=== PATIENT | male | born 1935 | race Caucasian/White ===

== ENCOUNTER 2023-10-06 16:40 | Inpatient (IN) | payer MEDICARE, OTHER ==
[2023-10-06] MEDS ORDERED: Artificial Tear Sol 15 ML BOT EA EYE PRN (22:24)
[2023-10-06] MEDS ORDERED: Calcium Carbonate 500 MG ChewTAB PO PRN (22:24)
[2023-10-06] MEDS ORDERED: Bisacodyl 10 MG SUPP PR PRN (22:24)
[2023-10-06] MEDS ORDERED: Sodium Chloride 0.65% Nasal 44 ML BOT EA NARE PRN (22:24)
[2023-10-06] MEDS ORDERED: Acetaminophen 325 MG TAB PO PRN (22:24)
[2023-10-06] MEDS ORDERED: Guaifenesin DM 100-10/5 ML UDCUP PO PRN (22:24)
[2023-10-06] MEDS ORDERED: Benzonatate 100 MG CAP PO PRN (22:24)
[2023-10-06] MEDS ORDERED: Ondansetron ODT 4 MG TAB PO PRN (22:24)
[2023-10-06] MEDS ORDERED: Acetaminophen 650 MG Suppository PR PRN (22:24)
[2023-10-06] MEDS ORDERED: Benzocaine/Menthol 1 LOZ LOZ PO PRN (22:24)
[2023-10-06] MEDS: Trospium 20 MG TAB PO SCH (22:56)
[2023-10-06] MEDS: Famotidine 20 MG TAB PO SCH (22:59)
[2023-10-06] MEDS: Memantine 10 MG TAB PO SCH (22:59)
[2023-10-06] MEDS: Finasteride 5 MG TAB PO SCH (22:59)
[2023-10-06] MEDS: Brimonidine Tartrate 0.2% Ophth Soln 5 ml Bottle EA EYE SCH (23:00)
[2023-10-06] MEDS: Tamsulosin HCl 0.4 MG CAP PO SCH (23:00)
[2023-10-06] MEDS: Carbidopa/Levodopa 25-100 mg Tablet PO SCH (23:00)
[2023-10-06] MEDS: Donepezil HCl 10 MG TAB PO SCH (23:00)
[2023-10-06] MEDS: Latanoprost 0.005% Ophth Soln 2.5 ml Bottle EA EYE SCH (23:03)
[2023-10-06] MEDS: Timolol 0.5% Ophth Soln 5 ml Bottle EA EYE SCH (23:04)
[2023-10-07 05:47] LABS: #Basophils 0.1 thou/uL (0.0-0.2); #Eosinphils 0.2 thou/uL (0.0-0.7); #Lymphocytes 1.8 thou/uL (1.20-3.40); #Monocytes 0.5 thou/uL (0.11-0.59); #Neutrophils 3.8 thou/uL (1.40-6.50); %Basophils 1.5 % (0.0-1.0); %Eosinophils 3.7 % (0.0-10.0); %Lymphocytes 27.8 % (21.0-51.0); %Monocytes 8.2 % (0.0-10.0); %Neutrophils 58.9 % (42.0-75.0); Hematocrit 36.1 % (42.0-52.0); Hemoglobin 11.8 g/dL (14.0-18.0); Mean Corpuscular HGB CONC 32.8 g/dL (32.0-36.0); Mean Corpuscular Hemoglobin 27.1 pg (27.0-31.0); Mean Corpuscular Volume 82.7 fl (78.0-98.0); Mean Platelet Volume 6.6 fL (7.4-10.4); Platelet Count 290 10x3/uL (130-400); RBC Distribution Width 12.1 % (11.5-14.5); Red Blood Cell (RBC) Count 4.36 mill/uL (4.70-6.10); White Blood Cell (WBC) Count 6.5 10x3/uL (4.8-10.8)
[2023-10-07 06:02] LABS: BUN (Urea Nitrogen) 19 mg/dL (8.4-25.7); Calc. Creatinine Clearance 71 mL/min (70-130); Calcium 8.7 mg/dL (7.6-10.4); Carbon Dioxide 27 mmol/L (23-31); Chloride 102 mmol/L (98-107); Estimated GFR 88; Glucose 84 mg/dL (83-110); Potassium 4.2 mmol/L (3.5-5.1); Sodium 134 mmol/L (136-145)
[2023-10-07] MEDS: Carbidopa/Levodopa 25-100 mg Tablet PO SCH (06:10)
[2023-10-07] MEDS: Brimonidine Tartrate 0.2% Ophth Soln 5 ml Bottle EA EYE SCH (06:10)
[2023-10-07 08:00] LABS: Anion Gap 9 mmol/L (10-20)
[2023-10-07] MEDS ORDERED: Carbidopa/Levodopa 25-100 mg Tablet PO SCH (09:00)
[2023-10-07] MEDS: Cholecalciferol 1,000 UNITS (25 MCG) TAB PO SCH (09:41)
[2023-10-07] MEDS: Famotidine 20 MG TAB PO SCH (09:44)
[2023-10-07] MEDS: Memantine 10 MG TAB PO SCH (09:45)
[2023-10-07] MEDS: Timolol 0.5% Ophth Soln 5 ml Bottle EA EYE SCH (09:46)
[2023-10-07] MEDS: Loratadine 10 MG TAB PO SCH (09:54)
[2023-10-07] MEDS: Fluticasone Propionate Nasal Spray 16 gm Bottle NASAL SCH (09:57)
[2023-10-07] MEDS: Enoxaparin 40 MG (0.4 mL) SYRINGE SC SCH (14:49)
[2023-10-07] MEDS: Donepezil HCl 10 MG TAB PO SCH (20:32)
[2023-10-07] MEDS: Trospium 20 MG TAB PO SCH (20:33)
[2023-10-07] MEDS: Finasteride 5 MG TAB PO SCH (20:33)
[2023-10-07] MEDS: Latanoprost 0.005% Ophth Soln 2.5 ml Bottle EA EYE SCH (20:35)
[2023-10-07] MEDS ORDERED: Tamsulosin HCl 0.4 MG CAP PO SCH (21:00)
[2023-10-07] MEDS: Melatonin 3 MG TAB PO PRN (21:22)
[2023-10-08] MEDS: Enoxaparin 40 MG (0.4 mL) SYRINGE SC SCH (08:29)
[2023-10-08] MEDS: Senokot S 8.6-50 MG TAB PO PRN (16:52)
[2023-10-09] MEDS: Bisacodyl 5 MG TAB PO PRN (11:16)
[2023-10-10] MEDS: Polyethylene Glycol 3350 17 GM Packet PO SCH (08:30)
[2023-10-12 08:56] LABS: #Basophils 0.1 thou/uL (0.0-0.2); #Eosinphils 0.2 thou/uL (0.0-0.7); #Lymphocytes 1.4 thou/uL (1.20-3.40); #Monocytes 0.6 thou/uL (0.11-0.59); %Basophils 0.7 % (0.0-1.0); %Lymphocytes 17.1 % (21.0-51.0); %Monocytes 7.1 % (0.0-10.0); %Neutrophils 72.2 % (42.0-75.0); Hematocrit 37.1 % (42.0-52.0); Hemoglobin 12.2 g/dL (14.0-18.0); Mean Corpuscular HGB CONC 32.7 g/dL (32.0-36.0); Mean Corpuscular Hemoglobin 27.3 pg (27.0-31.0); Mean Corpuscular Volume 83.4 fl (78.0-98.0); Mean Platelet Volume 7.5 fL (7.4-10.4); Platelet Count 289 10x3/uL (130-400); Red Blood Cell (RBC) Count 4.45 mill/uL (4.70-6.10); White Blood Cell (WBC) Count 8.3 10x3/uL (4.8-10.8)
[2023-10-12 09:00] LABS: Bilirubin Negative (Negative); Blood, Urine Negative (Negative); Clarity Clear (Clear); Glucose, Urine (Dipstick) Negative (Negative); Ketone, Urine Negative (Negative); Leukocyte Negative (Negative); Nitrite Negative (Negative); Protein, Urine (Dipstick) Negative (Neg-Trace); Specific Gravity, Urine 1.025 (1.005-1.030); Urobilinogen 0.2 mg/dL (Less than 2)
[2023-10-12 09:09] LABS: RBC/HPF None Seen HPF (0-3); WBC/HPF None Seen HPF (0-3)
[2023-10-12 09:10] LABS: Bacteria/HPF None Seen HPF (None Seen); Squamous Epithelial None Seen HPF (0-3)
[2023-10-12 09:11] LABS: ALT (SGPT) Less than 7 U/L (8-55); AST (SGOT) 11 U/L (5-34); Albumin 3.4 g/dL (3.4-4.8); Alkaline Phosphatase 65 U/L (40-110); Anion Gap 10 mmol/L (10-20); BUN (Urea Nitrogen) 18 mg/dL (8.4-25.7); Bilirubin, Total 0.5 mg/dL (0.2-1.2); Calc. Creatinine Clearance 58 mL/min (70-130); Calcium 8.9 mg/dL (7.8-10.44); Carbon Dioxide 27 mmol/L (23-31); Chloride 102 mmol/L (98-107); Estimated GFR 79; Globulin 2.3 g/dL (2.4-3.5); Glucose 136 mg/dL (83-110); Potassium 4.1 mmol/L (3.5-5.1); Protein, Total 5.7 g/dL (5.8-8.1); Sodium 135 mmol/L (136-145)
[2023-10-12] MEDS: Melatonin 3 MG TAB PO PRN (20:07)
[2023-10-13] MEDS: Carbidopa/Levodopa 25-100 mg Tablet PO SCH (17:06)
[2023-10-14] MEDS: Carbidopa/Levodopa 25-100 mg Tablet PO SCH (06:18)
[2023-10-14] MEDS ORDERED: Carbidopa/Levodopa 25-100 mg Tablet PO SCH (06:30)
[2023-10-15 03:41] VITALS: BMI 20.5
[2023-10-15 20:42] VITALS: TEMP 97.8
[2023-10-16 08:55] VITALS: BP 129/76
== END 2023-10-16 13:05 | DRG 948 ==
LOC: NAV ACUTE 21:48
PROVIDERS: ADMIT Family Medicine; ATTEND Family Medicine
DX: R53.81 Other malaise (principal); F05 Delirium due to known physiological condition; R44.3 Hallucinations, unspecified; G20.A1 Parkinson's disease without dyskinesia, without mention of fluctuations; Z66 Do not resuscitate; F02.80 Dementia in other diseases classified elsewhere, unspecified severity, without behavioral disturbance, psychotic disturbance, mood disturbance, and anxiety; N40.0 Benign prostatic hyperplasia without lower urinary tract symptoms; H40.9 Unspecified glaucoma; R91.1 Solitary pulmonary nodule; I10 Essential (primary) hypertension; Z79.899 Other long term (current) drug therapy; Z90.49 Acquired absence of other specified parts of digestive tract; Z98.49 Cataract extraction status, unspecified eye; Z82.49 Family history of ischemic heart disease and other diseases of the circulatory system; Z80.8 Family history of malignant neoplasm of other organs or systems; Z86.16 Personal history of COVID-19
CPT/HCPCS: 36415; 71045; 80048; 80053; 81001; 85025; 87086; J1650